=== PATIENT | female | born 1940 | race American Indian/Alaskan Native ===

== ENCOUNTER 2017-05-14 09:18 | Outpatient (CLI) | payer MEDICARE ==
[2017-05-14 10:16] LABS: Blood Urea Nitrogen 10 mg/dL (7-17)
--- NOTE | 2017-05-14 14:37 | Cat Scan Report ---
CT CHEST WITH CONTRAST: HISTORY: Endometrial cancer. COMPARISON: none. TECHNIQUE: Helical CT in 1.25mm intervals following IV contrast. Sagittal and coronal reformatted images. FINDINGS: Thyroid gland: Normal. Tracheobronchial tree: Normal. Esophagus: Normal. Heart: Normal. Pericardium: Normal. Mediastinum: Normal. Lung Henriquez: Normal. Pleural Spaces: Normal. Musculoskeletal: Normal. IMPRESSION: Unremarkable CT chest with contrast. No evidence for metastatic disease to the chest.
--- NOTE | 2017-05-14 14:41 | Cat Scan Report ---
CT ABDOMEN PELVIS WITH CONTRAST: HISTORY: Endometrial cancer. COMPARISON: none. TECHNIQUE: Helical CT in 1.25mm intervals following IV contrast. Sagittal and coronal reconstructions. FINDINGS: Liver: Normal. Biliary system: Cholecystectomy. No abnormal biliary dilatation. Pancreas: Normal. Spleen: Normal. Kidneys/ureters/bladder: 5.5 cm right renal cyst is noted. The kidneys are within normal limits otherwise. The ureters and bladder are unremarkable. Adrenal glands: Normal. Aorta: Normal. Intestines: There are a few scattered diverticula throughout the colon. No evidence for mass, obstruction or inflammatory change. Appendix: Normal. Pelvic viscera: Hysterectomy has been performed. The ovaries are not identified. No suspicious pelvic mass or adenopathy. Ascites: None. Adenopathy: None. Musculoskeletal: Mild thoracolumbar spondylosis. No suspicious bony lesion or fracture. IMPRESSION: Surgical changes as described. 5.5 cm right renal cyst. Mild diverticulosis of the colon. No evidence for recurrent or metastatic disease to the abdomen or pelvis.
== END 2017-05-14 09:19 | disposition home or self-care (01) ==
LOC: CT 09:18
PROVIDERS: ATTEND Obstetrics & Gynecology Gynecologic Oncology
DX: C54.1 Malignant neoplasm of endometrium (principal); N28.1 Cyst of kidney, acquired; M47.895 Other spondylosis, thoracolumbar region; K57.90 Diverticulosis of intestine, part unspecified, without perforation or abscess without bleeding; I10 Essential (primary) hypertension; Z90.710 Acquired absence of both cervix and uterus; Z90.49 Acquired absence of other specified parts of digestive tract
CPT/HCPCS: 36415; 71260; 74177; 82565; 84520; Q9967